=== PATIENT | male | born 1985 | race Two or more races ===

== ENCOUNTER 2023-02-08 23:28 | Emergency (ER) | payer OTHER ==
[~2023-02-08] VITALS: Ht 177.8 cm; Wt 89.8 kg
[2023-02-09 00:07] VITALS: BP 142/79
== END 2023-02-09 01:05 | disposition home or self-care (01) ==
LOC: ER 23:28
DX: S60.221A Contusion of right hand, initial encounter (principal); W23.0XXA Caught, crushed, jammed, or pinched between moving objects, initial encounter; Y99.0 Civilian activity done for income or pay
CPT/HCPCS: 29130; 73130; 99283-25

== ENCOUNTER 2025-01-30 02:08 | Emergency (ER) | payer OTHER ==
[~2025-01-30] VITALS: Ht 177.8 cm; Wt 91.6 kg
[2025-01-30 03:00] VITALS: BP 127/96
[2025-01-30] MEDS ORDERED: RX Prepack 6 Tabs Oxycodone 5mg UD ONE (03:00)
== END 2025-01-30 03:09 | disposition home or self-care (01) ==
LOC: ER 02:08
DX: S29.9XXA Unspecified injury of thorax, initial encounter (principal); X50.0XXA Overexertion from strenuous movement or load, initial encounter; Z91.041 Radiographic dye allergy status
CPT/HCPCS: 71046; 99283-25; A9270